=== PATIENT | female | born 1950 | race Caucasian/White ===

== ENCOUNTER → 2016-10-22 | Outpatient (CLI) | payer MEDICARE, BC ==
[~2016-10-22] MED LIST: DIAZ5TAB4 PO; DULO60CA6 PO; EZET10TA18 PO; FLUT10.6 IH; FORM20VI IH; FURO40TA4 PO; GABA600T14 PO; HYDR-2762 PO; METH10TA2 PO; MONT10TA6 PO; PHEN100O4 PO; POTASSIUM CHLO10 MEQ PO; PRIM50TA PO; RABE20TA18 PO
--- NOTE | 2016-10-22 16:50 | KCIC ---
INDICATION: Neck pain, spondylosis. Fall 2 weeks ago. TECHNIQUE: Sagittal T1, sagittal T2, sagittal STIR, axial T2, and axial T2 gradient sequences are provided. Comparison is made to radiographs from October 18, 2016. FINDINGS: There is edema along the superior endplates of T1, T2, and T3 on STIR imaging. There is mild anterior wedging of these vertebral bodies, collapse less than 25 percent. There is no retropulsion. There is no edema within the cervical spine. There is no malalignment. There is no worrisome marrow lesion. There is no cord signal abnormality. There is motion degradation. Degenerative findings by individual level are as follows, allowing for motion degradation: C2-C3: There is facet hypertrophy but no canal or foraminal compromise. C3-C4: There is a disc osteophyte complex, uncinate process spurring, buckling of ligamentum flavum, and facet hypertrophy. There is no canal stenosis. There is no definite foraminal narrowing. Evaluation of the foramina is limited. C4-C5: Disc osteophyte complex and facet hypertrophy are noted without canal or foraminal compromise. C5-C6: Disc osteophyte complex is noted effacing the ventral CSF column, probably mild canal stenosis. There is no definite foraminal narrowing. C6-C7: There is a disc osteophyte complex with central protrusion. There is buckling of ligamentum flavum. There is effacement of the ventral CSF column. There is probably mild canal stenosis and mild left foraminal narrowing. C7-T1: There is no canal or foraminal compromise. IMPRESSION: 1. Acute compression fractures of T1, T2, and T3 involving the superior endplates. 2. Degenerative changes throughout the cervical spine, not well evaluated given motion limitations. Report of compression fractures was called to the office of Dr. Mckeon at 1640 hours with callback number provided. Electronically signed by: Alex Lima MD (10/22/2016 4:46 PM) [id number]
== END | disposition home or self-care (01) ==
LOC: KCIC MRI 15:56
PROVIDERS: ATTEND Neurological Surgery
DX: M47.892 Other spondylosis, cervical region (principal)
CPT/HCPCS: 72141

== ENCOUNTER → 2016-11-20 | Outpatient (CLI) | payer MEDICARE, BC ==
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
== END ==
LOC: KCIC MRI 11:19
PROVIDERS: ATTEND Neurological Surgery
DX: M48.06 Spinal stenosis, lumbar region (principal); M25.78 Osteophyte, vertebrae
CPT/HCPCS: 72148